=== PATIENT | male | born 1995 | race African-American/Black ===

== ENCOUNTER 2023-06-10 23:30 | Emergency (ER) | payer MEDICAID, OTHER | END 2023-06-11 00:22 | disposition home or self-care (01) | LOC: JD.ED 23:30 | DX: K04.7 Periapical abscess without sinus (principal); F17.210 Nicotine dependence, cigarettes, uncomplicated | CPT/HCPCS: 64400; 99282; 99283 ==

== ENCOUNTER 2023-06-29 02:41 | Emergency (ER) | payer MEDICAID ==
[2023-06-29 03:00] LABS: BASOPHILS PERCENT AUTO 0.4 % (0.0-1.0); EOSINOPHILS ABSOLUTE AUTO 0.1 K/mm3 (0.0-0.4); EOSINOPHILS PERCENT AUTO 2.2 % (0.0-6.0); HEMATOCRIT 43.2 % (42.0-52.0); HEMOGLOBIN 15.1 gm/dl (14.0-18.0); IMMATURE GRAN ABSOLUTE AUTO 0.01 K/mm3 (0.00-0.05); IMMATURE GRAN PERCENT AUTO 0.2 % (0.0-0.4); LYMPHOCYTES ABSOLUTE AUTO 1.4 K/mm3 (1.0-4.8); LYMPHOCYTES PERCENT AUTO 26.6 % (24.0-44.0); MEAN CORPUSCULAR HEMOGLOBIN 31.7 pg (28.0-32.0); MEAN CORPUSCULAR VOLUME 90.6 fl (83.0-99.0); MEAN PLATELET VOLUME 10.1 fl (9.4-12.4); MONOCYTES ABSOLUTE AUTO 0.4 K/mm3 (0.0-0.8); MONOCYTES PERCENT AUTO 7.9 % (0.0-8.0); NEUTROPHILS ABSOLUTE AUTO 3.2 K/mm3 (1.8-7.7); NEUTROPHILS PERCENT AUTO 62.7 % (41.0-71.0); PLATELET COUNT,PLT 188 K/mm3 (150-400); RED BLOOD CELL COUNT 4.77 M/mm3 (4.52-5.90); WHITE BLOOD CELL COUNT,WBC 5.07 K/mm3 (3.9-11.3)
[2023-06-29] MEDS ORDERED: Aspirin 81 MG Tab.Chew PO ONE (03:17)
[2023-06-29 03:29] LABS: A/G RATIO 1.1 (1-2); ALANINE AMINOTRANSFERASE,ALT 21 U/L (16-63); ALKALINE PHOSPHATASE 72 U/L (46-116); ANION GAP 16.3 (5-15); ASPARTATE AMNIOTRANSFERASE,AST 23 U/L (15-37); BILIRUBIN TOTAL 0.5 mg/dL (0.2-1.0); BLOOD UREA NITROGEN,BUN 10 mg/dL (7-18); BUN/CREATININE RATIO 9.1 (14-18); CALCIUM 8.5 mg/dL (8.5-10.1); CARBON DIOXIDE,CO2 26 mEq/L (21-32); CHLORIDE,CL 102 mEq/L (98-107); CREATININE 1.1 mg/dL (0.7-1.3); ESTIMATED GFR 93 mL/min (>60); ETHANOL BLOOD MEDICAL 0.19 gm% (0.00); GLUCOSE RANDOM 108 mg/dL (70-99); POTASSIUM,K 3.3 mEq/L (3.5-5.1); PROTEIN TOTAL,TP 7.6 g/dl (6.4-8.2); SODIUM,NA 141 mEq/L (136-145); TSH 1.305 uIU/mL (0.358-3.74)
[2023-06-29 03:56] LABS: CORONAVIRUS COVID-19 NAA NEGATIVE (NEGATIVE); INFLUENZA A NAA NEGATIVE (NEGATIVE); RESPIRATORY SYNCYTIAL VIR NAA NEGATIVE (NEGATIVE)
[2023-06-29 05:36] LABS: BARBITURATE SCREEN,URINE NEGATIVE (CUTOFF=200); BENZODIAZEPINES SCREEN,URINE NEGATIVE (CUTOFF=150); BUPRENORPHINE SCREEN,URINE NEGATIVE (CUTOFF=10); METHADONE SCREEN, URINE NEGATIVE (CUT0FF=200); METHAMPHETAMINES SCREEN, URINE NEGATIVE (CUTOFF=500); OXYCODONE SCREEN,URINE NEGATIVE (CUT0FF=100); THC SCREEN,URINE 20 NG/ML NEGATIVE (CUTOFF=50)
[2023-06-29 05:41] LABS: AMPHETAMINES SCREEN, URINE NEGATIVE (CUTOFF=500)
== END 2023-06-29 07:16 | disposition home or self-care (01) ==
LOC: JD.ED 02:41
DX: R07.9 Chest pain, unspecified (principal); Z20.822 Contact with and (suspected) exposure to COVID-19
CPT/HCPCS: 0241U; 36415; 71045; 80053; 80306; 80307; 84443; 84484; 85025; 93005; 99285; A9270

== ENCOUNTER 2023-08-10 09:07 | Emergency (ER) | payer SELFPAY ==
[2023-08-10] MEDS ORDERED: Dextrose 5%-Lactated Ringers 1,000 ML IV SCH (10:00)
[2023-08-10] MEDS ORDERED: Metoclopramide 10 MG/2 ML SDV IVPUSH ONE (10:06)
[2023-08-10] MEDS ORDERED: HYDROmorphone 0.5 MG/0.5 ML Syringe IVPUSH ONE (10:06)
[2023-08-10 10:38] LABS: BASOPHILS PERCENT AUTO 0.3 % (0.0-1.0); EOSINOPHILS PERCENT AUTO 1.1 % (0.0-6.0); HEMATOCRIT 47.3 % (42.0-52.0); HEMOGLOBIN 16.4 gm/dl (14.0-18.0); IMMATURE GRAN ABSOLUTE AUTO 0.01 K/mm3 (0.00-0.05); IMMATURE GRAN PERCENT AUTO 0.3 % (0.0-0.4); LYMPHOCYTES ABSOLUTE AUTO 0.6 K/mm3 (1.0-4.8); LYMPHOCYTES PERCENT AUTO 16.7 % (24.0-44.0); MEAN CORPUSCULAR HEMOGLOBIN 31.4 pg (28.0-32.0); MEAN CORPUSCULAR HGB CONC 34.7 g/dl (32.0-36.0); MEAN CORPUSCULAR VOLUME 90.6 fl (83.0-99.0); MEAN PLATELET VOLUME 9.9 fl (9.4-12.4); MONOCYTES ABSOLUTE AUTO 0.6 K/mm3 (0.0-0.8); MONOCYTES PERCENT AUTO 15.9 % (0.0-8.0); NEUTROPHILS ABSOLUTE AUTO 2.4 K/mm3 (1.8-7.7); NEUTROPHILS PERCENT AUTO 65.7 % (41.0-71.0); PLATELET COUNT,PLT 171 K/mm3 (150-400); RED BLOOD CELL COUNT 5.22 M/mm3 (4.52-5.90); WHITE BLOOD CELL COUNT,WBC 3.65 K/mm3 (3.9-11.3)
[2023-08-10 10:40] LABS: CORONAVIRUS COVID-19 NAA NEGATIVE (NEGATIVE); INFLUENZA A NAA NEGATIVE (NEGATIVE); RESPIRATORY SYNCYTIAL VIR NAA NEGATIVE (NEGATIVE)
[2023-08-10 11:02] LABS: A/G RATIO 1.1 (1-2); ALBUMIN 4.1 g/dl (3.4-5.0); ANION GAP 12.9 (5-15); BILIRUBIN TOTAL 0.8 mg/dL (0.2-1.0); C-REACTIVE PROTEIN 0.8 mg/dL (<1.0); CREATININE 1.4 mg/dL (0.7-1.3); EST CRCL DRUG DOSING (CG) 72.13 mL/min; MAGNESIUM 1.7 mg/dL (1.8-2.4); POTASSIUM,K 3.9 mEq/L (3.5-5.1); PROTEIN TOTAL,TP 7.8 g/dl (6.4-8.2)
== END 2023-08-10 11:15 | disposition home or self-care (01) ==
LOC: JD.ED 09:07
DX: J10.1 Influenza due to other identified influenza virus with other respiratory manifestations (principal); Z79.899 Other long term (current) drug therapy
CPT/HCPCS: 0241U; 36415; 71045; 80053; 83735; 84484; 85025; 86140; 93005; 96374; 96375; 99285; J1170; J2765; J7121

== ENCOUNTER 2023-12-17 22:28 | Emergency (ER) | payer MEDICAID ==
[2023-12-17 23:16] LABS: BASOPHILS PERCENT AUTO 0.5 % (0.0-1.0); EOSINOPHILS ABSOLUTE AUTO 0.1 K/mm3 (0.0-0.4); EOSINOPHILS PERCENT AUTO 2.5 % (0.0-6.0); HEMATOCRIT 48.7 % (42.0-52.0); HEMOGLOBIN 17.4 gm/dl (14.0-18.0); IMMATURE GRAN ABSOLUTE AUTO 0.01 K/mm3 (0.00-0.05); IMMATURE GRAN PERCENT AUTO 0.2 % (0.0-0.4); LYMPHOCYTES ABSOLUTE AUTO 0.9 K/mm3 (1.0-4.8); LYMPHOCYTES PERCENT AUTO 16.1 % (24.0-44.0); MEAN CORPUSCULAR HEMOGLOBIN 32.6 pg (28.0-32.0); MEAN CORPUSCULAR HGB CONC 35.7 g/dl (32.0-36.0); MEAN CORPUSCULAR VOLUME 91.2 fl (83.0-99.0); MEAN PLATELET VOLUME 10.1 fl (9.4-12.4); MONOCYTES ABSOLUTE AUTO 0.6 K/mm3 (0.0-0.8); MONOCYTES PERCENT AUTO 11.3 % (0.0-8.0); NEUTROPHILS ABSOLUTE AUTO 3.9 K/mm3 (1.8-7.7); NEUTROPHILS PERCENT AUTO 69.4 % (41.0-71.0); PLATELET COUNT,PLT 190 K/mm3 (150-400); RED BLOOD CELL COUNT 5.34 M/mm3 (4.52-5.90); WHITE BLOOD CELL COUNT,WBC 5.66 K/mm3 (3.9-11.3)
[2023-12-17] MEDS: Ketorolac 60 MG/2 ML SDV IM ONE (23:25)
[2023-12-17] MEDS: Ondansetron 4 MG Tab.DIS PO ONE (23:25)
[2023-12-17 23:26] LABS: A/G RATIO 1.1 (1-2); ALBUMIN 4.4 g/dl (3.4-5.0); ANION GAP 12.3 (5-15); BILIRUBIN TOTAL 0.6 mg/dL (0.2-1.0); BUN/CREATININE RATIO 9.3 (14-18); CALCIUM 9.7 mg/dL (8.5-10.1); CREATININE 1.4 mg/dL (0.7-1.3); EST CRCL DRUG DOSING (CG) 79.66 mL/min; POTASSIUM,K 4.3 mEq/L (3.5-5.1); PROTEIN TOTAL,TP 8.4 g/dl (6.4-8.2)
[2023-12-17 23:45] LABS: APPEARANCE,URINE CLEAR (Clear); BILIRUBIN,URINE NEGATIVE (Negative); COLOR,URINE YELLOW (Yellow); GLUCOSE,URINE NEGATIVE (Negative); KETONES,URINE NEGATIVE (Negative); LEUKOCYTE ESTERASE,URINE 1+ (Negative); NITRITE,URINE NEGATIVE (Negative); OCCULT BLOOD,URINE TRACE-INTACT (Negative); PH,URINE 6.5 (5.0-8.0); PROTEIN,URINE NEGATIVE (Negative); UROBILINOGEN,URINE 0.2 (0.2-1.0)
[2023-12-17 23:56] LABS: BACTERIA,URINE RARE /hpf (FEW); EPITHELIAL CELLS,URINE 0-5 /hpf (0-5); RBC,URINE 0-5 /hpf (0-5); WBC,URINE 0-5 /hpf (0-5)
[2023-12-17 23:57] LABS: MUCUS,URINE NOT SEEN /hpf (FEW)
[2023-12-18] MEDS: Doxycycline Monohydrate 100 MG Cap PO ONE (00:37)
[2023-12-18] MEDS: Phenazopyridine 95 MG Tab PO ONE (00:37)
== END 2023-12-18 00:47 | disposition home or self-care (01) ==
LOC: JD.ED 22:28
DX: N39.0 Urinary tract infection, site not specified (principal); K21.9 Gastro-esophageal reflux disease without esophagitis; Z79.899 Other long term (current) drug therapy
CPT/HCPCS: 36415; 74176; 74176-26; 80053; 81001; 83690; 85025; 87086; 87088; 87186; 96372; 99283; 99284; A9270-GY; J1885

== ENCOUNTER 2023-12-19 22:28 | Emergency (ER) | payer MEDICAID ==
[2023-12-19] MEDS: Sodium Chloride 0.9% 10 ML Syringe FLUSH PRN (23:26)
[2023-12-19 23:36] LABS: BASOPHILS PERCENT AUTO 0.5 % (0.0-1.0); EOSINOPHILS PERCENT AUTO 0.6 % (0.0-6.0); HEMATOCRIT 49.3 % (42.0-52.0); HEMOGLOBIN 17.6 gm/dl (14.0-18.0); IMMATURE GRAN ABSOLUTE AUTO 0.02 K/mm3 (0.00-0.05); IMMATURE GRAN PERCENT AUTO 0.3 % (0.0-0.4); LYMPHOCYTES ABSOLUTE AUTO 0.9 K/mm3 (1.0-4.8); MEAN CORPUSCULAR HEMOGLOBIN 32.4 pg (28.0-32.0); MEAN CORPUSCULAR HGB CONC 35.7 g/dl (32.0-36.0); MEAN CORPUSCULAR VOLUME 90.8 fl (83.0-99.0); MONOCYTES ABSOLUTE AUTO 0.9 K/mm3 (0.0-0.8); MONOCYTES PERCENT AUTO 15.2 % (0.0-8.0); NEUTROPHILS ABSOLUTE AUTO 4.2 K/mm3 (1.8-7.7); NEUTROPHILS PERCENT AUTO 68.4 % (41.0-71.0); PLATELET COUNT,PLT 160 K/mm3 (150-400); RED BLOOD CELL COUNT 5.43 M/mm3 (4.52-5.90); WHITE BLOOD CELL COUNT,WBC 6.19 K/mm3 (3.9-11.3)
[2023-12-19 23:43] LABS: APPEARANCE,URINE CLEAR (Clear); BILIRUBIN,URINE NEGATIVE (Negative); COLOR,URINE YELLOW (Yellow); GLUCOSE,URINE NEGATIVE (Negative); KETONES,URINE 1+ (Negative); LEUKOCYTE ESTERASE,URINE 1+ (Negative); NITRITE,URINE NEGATIVE (Negative); OCCULT BLOOD,URINE NEGATIVE (Negative); PH,URINE 6.5 (5.0-8.0); PROTEIN,URINE TRACE (Negative); UROBILINOGEN,URINE 0.2 (0.2-1.0)
[2023-12-19 23:55] LABS: BACTERIA,URINE FEW /hpf (FEW); EPITHELIAL CELLS,URINE 0-5 /hpf (0-5); MUCUS,URINE RARE /hpf (FEW)
[2023-12-20] MEDS: Doxycycline Monohydrate 100 MG Cap PO ONE (00:12)
[2023-12-20 00:25] LABS: LACTIC ACID 0.9 mmol/L (0.4-2.0)
[2023-12-20 00:32] LABS: ANION GAP 11.3 (5-15); BILIRUBIN TOTAL 1.2 mg/dL (0.2-1.0); C-REACTIVE PROTEIN 8.49 mg/dL (<0.30); CALCIUM 9.1 mg/dL (8.5-10.1); CREATININE 1.6 mg/dL (0.7-1.3); EST CRCL DRUG DOSING (CG) 62.8 mL/min; MAGNESIUM 1.6 mg/dL (1.8-2.4); POTASSIUM,K 4.3 mEq/L (3.5-5.1); PROTEIN TOTAL,TP 8.2 g/dl (6.4-8.2)
== END 2023-12-20 01:10 | disposition home or self-care (01) ==
LOC: JD.ED 22:28
DX: N39.0 Urinary tract infection, site not specified (principal); F17.210 Nicotine dependence, cigarettes, uncomplicated; Z79.899 Other long term (current) drug therapy
CPT/HCPCS: 36415; 80053; 81001; 83605; 83735; 85025; 86140; 87086; 99284; A9270; J3490

== ENCOUNTER 2024-02-08 20:33 | Emergency (ER) | payer MEDICAID ==
[2024-02-08 21:07] LABS: BASOPHILS PERCENT AUTO 0.4 % (0.0-1.0); EOSINOPHILS ABSOLUTE AUTO 0.1 K/mm3 (0.0-0.4); EOSINOPHILS PERCENT AUTO 2.6 % (0.0-6.0); HEMOGLOBIN 13.9 gm/dl (14.0-18.0); IMMATURE GRAN ABSOLUTE AUTO 0.01 K/mm3 (0.00-0.05); IMMATURE GRAN PERCENT AUTO 0.2 % (0.0-0.4); LYMPHOCYTES ABSOLUTE AUTO 1.3 K/mm3 (1.0-4.8); LYMPHOCYTES PERCENT AUTO 27.6 % (24.0-44.0); MEAN CORPUSCULAR HEMOGLOBIN 32.6 pg (28.0-32.0); MEAN CORPUSCULAR HGB CONC 35.6 g/dl (32.0-36.0); MEAN CORPUSCULAR VOLUME 91.5 fl (83.0-99.0); MEAN PLATELET VOLUME 10.1 fl (9.4-12.4); MONOCYTES ABSOLUTE AUTO 0.4 K/mm3 (0.0-0.8); MONOCYTES PERCENT AUTO 7.7 % (0.0-8.0); NEUTROPHILS ABSOLUTE AUTO 2.9 K/mm3 (1.8-7.7); NEUTROPHILS PERCENT AUTO 61.5 % (41.0-71.0); PLATELET COUNT,PLT 149 K/mm3 (150-400); RED BLOOD CELL COUNT 4.26 M/mm3 (4.52-5.90); WHITE BLOOD CELL COUNT,WBC 4.68 K/mm3 (3.9-11.3)
[2024-02-08] MEDS: Ketorolac 30 MG/ML SDV IVPUSH ONE (21:17)
[2024-02-08] MEDS: Alum Hydrox/Mag Hydrox/Simeth 30 ML, Lidocaine 2% 15 ML PO ONE (21:17)
[2024-02-08 21:32] LABS: A/G RATIO 1.4 (1-2); ALBUMIN 4.1 g/dl (3.4-5.0); ANION GAP 13.3 (5-15); BILIRUBIN TOTAL 0.9 mg/dL (0.2-1.0); BUN/CREATININE RATIO 14.2 (14-18); CALCIUM 8.5 mg/dL (8.5-10.1); CREATININE 1.2 mg/dL (0.7-1.3); EST CRCL DRUG DOSING (CG) 81.23 mL/min; POTASSIUM,K 3.3 mEq/L (3.5-5.1); PROTEIN TOTAL,TP 7.1 g/dl (6.4-8.2)
== END 2024-02-08 22:15 | disposition home or self-care (01) ==
LOC: JD.ED 20:33
DX: R07.89 Other chest pain (principal); F17.210 Nicotine dependence, cigarettes, uncomplicated
CPT/HCPCS: 36415; 71046; 80053; 84484; 85025; 85379; 93005; 96374; 99285; A9270; J1885

== ENCOUNTER 2024-02-18 01:56 | Emergency (ER) | payer MEDICAID ==
[2024-02-18] MEDS ORDERED: Sodium Chloride 0.9% 10 ML Syringe FLUSH PRN (02:12)
[2024-02-18 02:18] LABS: BASOPHILS PERCENT AUTO 0.7 % (0.0-1.0); EOSINOPHILS ABSOLUTE AUTO 0.1 K/mm3 (0.0-0.4); EOSINOPHILS PERCENT AUTO 2.8 % (0.0-6.0); HEMATOCRIT 38.5 % (42.0-52.0); HEMOGLOBIN 13.4 gm/dl (14.0-18.0); IMMATURE GRAN ABSOLUTE AUTO 0.02 K/mm3 (0.00-0.05); IMMATURE GRAN PERCENT AUTO 0.5 % (0.0-0.4); LYMPHOCYTES ABSOLUTE AUTO 1.8 K/mm3 (1.0-4.8); MEAN CORPUSCULAR HEMOGLOBIN 32.1 pg (28.0-32.0); MEAN CORPUSCULAR HGB CONC 34.8 g/dl (32.0-36.0); MEAN CORPUSCULAR VOLUME 92.1 fl (83.0-99.0); MEAN PLATELET VOLUME 10.3 fl (9.4-12.4); MONOCYTES ABSOLUTE AUTO 0.4 K/mm3 (0.0-0.8); MONOCYTES PERCENT AUTO 8.4 % (0.0-8.0); NEUTROPHILS PERCENT AUTO 46.6 % (41.0-71.0); PLATELET COUNT,PLT 142 K/mm3 (150-400); RED BLOOD CELL COUNT 4.18 M/mm3 (4.52-5.90); WHITE BLOOD CELL COUNT,WBC 4.27 K/mm3 (3.9-11.3)
[2024-02-18 02:42] LABS: A/G RATIO 1.3 (1-2); ALANINE AMINOTRANSFERASE,ALT 22 U/L (16-63); ALKALINE PHOSPHATASE 68 U/L (46-116); ANION GAP 16.1 (5-15); ASPARTATE AMNIOTRANSFERASE,AST 22 U/L (15-37); BILIRUBIN TOTAL 0.2 mg/dL (0.2-1.0); BLOOD UREA NITROGEN,BUN 15 mg/dL (7-18); BUN/CREATININE RATIO 13.6 (14-18); CALCIUM 8.1 mg/dL (8.5-10.1); CARBON DIOXIDE,CO2 24 mEq/L (21-32); CHLORIDE,CL 103 mEq/L (98-107); CREATININE 1.1 mg/dL (0.7-1.3); EST CRCL DRUG DOSING (CG) 101.39 mL/min; ESTIMATED GFR 93 mL/min (>60); ETHANOL BLOOD MEDICAL 0.14 gm% (0.00); GLUCOSE RANDOM 162 mg/dL (70-99); MAGNESIUM 1.7 mg/dL (1.8-2.4); POTASSIUM,K 3.1 mEq/L (3.5-5.1); SODIUM,NA 140 mEq/L (136-145)
[2024-02-18 02:43] LABS: TROPONIN I HIGH SENSITIVITY < 4 pg/mL (<=76)
[2024-02-18] MEDS: Ondansetron 4 MG/2 ML SDV IVPUSH ONE (02:47)
[2024-02-18] MEDS: Sodium Chloride 0.9% 1,000 ML IV SCH (02:47)
== END 2024-02-18 06:47 | disposition home or self-care (01) ==
LOC: JD.ED 01:56
DX: R07.89 Other chest pain (principal); F10.920 Alcohol use, unspecified with intoxication, uncomplicated
CPT/HCPCS: 36415; 71045; 80053; 80307; 83735; 84484; 85025; 93005; 96361; 96374; 99285; J2405; J7030; 93010; 99284

== ENCOUNTER 2024-02-23 02:15 | Emergency (ER) | payer MEDICAID ==
[2024-02-23 02:57] LABS: BASOPHILS PERCENT AUTO 0.7 % (0.0-1.0); EOSINOPHILS ABSOLUTE AUTO 0.1 K/mm3 (0.0-0.4); HEMATOCRIT 41.4 % (42.0-52.0); HEMOGLOBIN 14.4 gm/dl (14.0-18.0); IMMATURE GRAN ABSOLUTE AUTO 0.01 K/mm3 (0.00-0.05); IMMATURE GRAN PERCENT AUTO 0.2 % (0.0-0.4); LYMPHOCYTES ABSOLUTE AUTO 1.7 K/mm3 (1.0-4.8); LYMPHOCYTES PERCENT AUTO 37.5 % (24.0-44.0); MEAN CORPUSCULAR HEMOGLOBIN 32.2 pg (28.0-32.0); MEAN CORPUSCULAR HGB CONC 34.8 g/dl (32.0-36.0); MEAN CORPUSCULAR VOLUME 92.6 fl (83.0-99.0); MEAN PLATELET VOLUME 10.1 fl (9.4-12.4); MONOCYTES ABSOLUTE AUTO 0.3 K/mm3 (0.0-0.8); MONOCYTES PERCENT AUTO 7.3 % (0.0-8.0); NEUTROPHILS ABSOLUTE AUTO 2.3 K/mm3 (1.8-7.7); NEUTROPHILS PERCENT AUTO 52.3 % (41.0-71.0); PLATELET COUNT,PLT 197 K/mm3 (150-400); RED BLOOD CELL COUNT 4.47 M/mm3 (4.52-5.90)
[2024-02-23] MEDS: Sodium Chloride 0.9% 1,000 ML IV ONE (03:05)
[2024-02-23] MEDS: Sodium Chloride 0.9% 10 ML Syringe FLUSH PRN (03:06)
[2024-02-23 03:12] LABS: A/G RATIO 1.3 (1-2); ALANINE AMINOTRANSFERASE,ALT 25 U/L (16-63); ALBUMIN 4.4 g/dl (3.4-5.0); ALKALINE PHOSPHATASE 73 U/L (46-116); ANION GAP 11.4 (5-15); ASPARTATE AMNIOTRANSFERASE,AST 28 U/L (15-37); BILIRUBIN TOTAL 0.4 mg/dL (0.2-1.0); BLOOD UREA NITROGEN,BUN 15 mg/dL (7-18); BUN/CREATININE RATIO 11.5 (14-18); CALCIUM 8.7 mg/dL (8.5-10.1); CARBON DIOXIDE,CO2 31 mEq/L (21-32); CHLORIDE,CL 103 mEq/L (98-107); CREATININE 1.3 mg/dL (0.7-1.3); ESTIMATED GFR 76 mL/min (>60); GLUCOSE RANDOM 116 mg/dL (70-99); LIPASE 20 U/L (16-77); MAGNESIUM 1.8 mg/dL (1.8-2.4); POTASSIUM,K 3.4 mEq/L (3.5-5.1); PROTEIN TOTAL,TP 7.7 g/dl (6.4-8.2); SODIUM,NA 142 mEq/L (136-145)
[2024-02-23 03:37] LABS: TROPONIN I HIGH SENSITIVITY < 4 pg/mL (<=76)
== END 2024-02-23 06:50 | disposition home or self-care (01) ==
LOC: JD.ED 02:15
DX: R07.9 Chest pain, unspecified (principal); F10.920 Alcohol use, unspecified with intoxication, uncomplicated; F17.210 Nicotine dependence, cigarettes, uncomplicated
CPT/HCPCS: 36415; 71045; 80053; 83690; 83735; 84484; 85025; 93005; 96360; 99285; J3490; J7030; 93010; 99282